=== PATIENT | male | born 1975 | race Caucasian/White ===

== ENCOUNTER 2018-12-11 08:37 | Emergency (ER) | payer OTHER | END 2018-12-11 09:40 | disposition home or self-care (01) | LOC: FTE 08:37 | DX: L03.311 Cellulitis of abdominal wall (principal); J44.9 Chronic obstructive pulmonary disease, unspecified; I50.9 Heart failure, unspecified; Z79.82 Long term (current) use of aspirin; Z87.891 Personal history of nicotine dependence | CPT/HCPCS: 99283; Z7502 ==

== ENCOUNTER 2019-06-24 06:30 | Emergency (ER) | payer MEDICAID, OTHER | END 2019-06-24 08:03 | disposition home or self-care (01) | LOC: E/R 06:30 | DX: F10.230 Alcohol dependence with withdrawal, uncomplicated (principal); F41.9 Anxiety disorder, unspecified; I11.0 Hypertensive heart disease with heart failure; I50.9 Heart failure, unspecified; J44.9 Chronic obstructive pulmonary disease, unspecified; Z76.0 Encounter for issue of repeat prescription | CPT/HCPCS: 99283; Z7502 ==